=== PATIENT | male | born 1970 | race Two or more races ===

== ENCOUNTER → 2020-04-27 | Emergency (ER) | payer OTHER ==
[~2020-04-27] VITALS: Ht 180.3 cm; Wt 70.3 kg
== END | disposition home or self-care (01) ==
LOC: ER 15:50
DX: S81.822A Laceration with foreign body, left lower leg, initial encounter (principal); S81.821A Laceration with foreign body, right lower leg, initial encounter; W45.8XXA Other foreign body or object entering through skin, initial encounter; Y93.89 Activity, other specified; Y92.098 Other place in other non-institutional residence as the place of occurrence of the external cause; Y99.8 Other external cause status